=== PATIENT | female | born 1995 | race Caucasian/White ===

== ENCOUNTER → 2019-04-27 | Outpatient (CLI) | payer BC ==
[2019-04-27 17:02] LABS: T4, Free (Free Thyroxine) 1.2 ng/dL (0.80-1.80)
[2019-04-27 17:40] LABS: Thyroid Peroxidase Antibodies 35.1 U/mL (0.0-60.0)
[2019-04-27 17:45] LABS: Insulin Level 10.6 mIU/mL (3.0-25.0)
[2019-04-27 18:38] LABS: ACTH 8.87 pg/mL (0.00-45.99)
== END | disposition home or self-care (01) ==
LOC: LABWHC1 08:57
PROVIDERS: ATTEND Internal Medicine Endocrinology, Diabetes & Metabolism
DX: L68.0 Hirsutism (principal); N92.6 Irregular menstruation, unspecified
CPT/HCPCS: 36415; 82024; 82533; 82627; 83498; 83525; 84403; 84439; 84443; 86376